=== PATIENT | male | born 1940 | race Caucasian/White ===

== ENCOUNTER → 2016-08-25 | Outpatient (CLI) | payer MEDICARE, OTHER ==
[~2016-08-25] MED LIST: CARV6.252 PO; COLY4000S PO; DIAZ10TA PO; FISH1000 PO; HYDR-2768 PO; OXYC1SOL5 PO; PLAV75TA PO; QUIN20TA22 PO; SIMV20TA PO; SYNT137T PO; Z.0.WALKERFRONT
--- NOTE | 2016-08-31 11:02 | RSPPFT ---
DATE OF PROCEDURE: 08/25/16 COMMENTS: VOLUMES DYNAMIC: FVC mildly reduced; FEV1 normal. STATIC: FRC, TLC mildly reduced; RV low normal. FLOWS: FEV1% and FEF 25-75 super normal. DIFFUSION: Mildly to moderately reduced. FLOW VOLUME LOOP: Restrictive configuration. IMPRESSION: Mild restrictive ventilatory defect with a mild to moderate reduction in diffusion. No improvement post-bronchodilator noted.
== END ==
LOC: HRSP 08:24
PROVIDERS: ATTEND Internal Medicine
DX: J84.10 Pulmonary fibrosis, unspecified (principal)
CPT/HCPCS: 94060; 94620; 94726; 94729

== ENCOUNTER → 2017-03-08 | Outpatient (CLI) | payer MEDICARE, OTHER ==
--- NOTE | 2017-03-09 11:49 | RSPPFT ---
DATE OF PROCEDURE: 03/08/17 COMMENTS: VOLUMES DYNAMIC: FVC and FEV1 mildly reduced. STATIC: FRC, RV and TLC mildly reduced. FLOWS: FEV1% and FEF 25-75 normal. DIFFUSION: Moderately reduced. FLOW VOLUME LOOP: Restrictive configuration. IMPRESSION: Mild restrictive ventilatory defect with reduction in diffusion. No significant obstruction and no response to bronchodilator noted.
== END ==
LOC: PHRSP 08:03
PROVIDERS: ATTEND Internal Medicine
DX: R06.02 Shortness of breath (principal)
CPT/HCPCS: 94060; 94620; 94726; 94729

== ENCOUNTER → 2017-08-16 | Outpatient (CLI) | DX: J42 Unspecified chronic bronchitis (principal) ==